=== PATIENT | male | born 1995 | race Caucasian/White ===

== ENCOUNTER → 2020-06-01 | Outpatient (CLI) | payer OTHER | LOC: M.RAD 11:39 | PROVIDERS: ATTEND Internal Medicine | DX: J15.8 Pneumonia due to other specified bacteria (principal); R06.02 Shortness of breath ==

== ENCOUNTER → 2020-07-27 | Outpatient (CLI) | payer OTHER | LOC: M.MRI 16:14 | PROVIDERS: ATTEND Registered Nurse Diabetes Educator | DX: M54.12 Radiculopathy, cervical region (principal); V89.2XXA Person injured in unspecified motor-vehicle accident, traffic, initial encounter ==

== ENCOUNTER → 2021-05-08 | Outpatient (CLI) | payer OTHER | LOC: M.RAD 11:13 | PROVIDERS: ATTEND Internal Medicine | DX: R09.81 Nasal congestion (principal) ==